=== PATIENT | male | born 1970 | race Caucasian/White ===

== ENCOUNTER → 2016-11-22 | Outpatient (CLI) | payer MEDICAID ==
[~2016-11-22] MED LIST: NAPROSYN 500MG500 MG PO; ROBAXIN 500 MG500 MG PO
--- NOTE | 2016-11-24 08:20 | RADIOLOGY REPORT PS360 ---
MRI-UP EXT ANY JNT W/O-RT MRI RIGHT SHOULDER ORDERING PHYSICIAN : RENNY HUBBARD MD PATIENT AGE: 46 years GENDER: Male INDICATION: ROTATOR CUFF SYNDROME Pain with raising arm above head. No trauma. Symptoms 8 months. Weakness and arm. TECHNIQUE: Multiplanar multisequence imaging 1.5 the MR COMPARISON plain films of right shoulder FINDINGS Patient was a large and unable to shoulder coil. Because of this decreases resolution on today's. This reflects high-grade tendinopathy although could reflect a small cuff tear just at the supraspinatus insertionq Images There is increased signal at the insertion of the supraspinatus tendon . This may just less than 1 cm length along the undersurface of the supraspinatus tendon This reflects tendinopathy and possible partial tear at supraspinatus insertion Region .. Infraspinatus tendon appears intact.. Subscapularis tendon appears intact. But with slight increased signal which could reflect minor tendinopathy. Particularly on the sagittal image set. No prominent or significant free fluid at subdeltoid subacromial bursa to further support a full-thickness rotator cuff tear. On coronal images the acromion is fairly neutral with only subtle downward sloping. The subacromial space measures 6.5- 7 mm.. The supraspinatus appears satisfactory to this region. There is since 11/08/2016 moderate AC joint hypertrophy and arthropathy which is more evident on MR than plain film. Inferior AC joint spurring here slightly encroaches upon the supraspinatus at medial outlet Osseous glenoid is intact. The anterior glenoid labrum appears intact as does the posterior labrum. The patient was unable to externally rotate shoulder with today's MR study, and thus with this is more difficult to optimally visualize the biceps tendon is difficult to visualize biceps tendon. In fact it biceps tendon suggests slight increased signal and less well-defined superior bicipital groove. Difficult to image but suspect for biceps tendinopathy requires correlation IMPRESSION 1. Large patient. & Could not use dedicated shoulder coil. Thus less than optimal image resolution 2. No full-thickness or large rotator cuff tear. 3. Increased signal supraspinatus tendon insertion reflecting tendinopathy, & question minor partial supraspinatus tear at this tendon insertion.. No tendon retraction or defect. No definitive full-thickness tear. -With No significant fluid subdeltoid acromial bursa. 4. Question suspect minor subscapularis tendinopathy as well 5.. biceps tendon difficult to visualize in this patient. Biceps tendon seems to have increased signal just superior to the bicipital groove possibly reflecting biceps tendinopathy. However no fluid is seen along the biceps tendon sheath.
== END ==
LOC: RAD 15:00
DX: M75.101 Unspecified rotator cuff tear or rupture of right shoulder, not specified as traumatic (principal)

== ENCOUNTER → 2017-01-14 | Outpatient (CLI) | payer MEDICAID ==
[2017-01-14 14:37] LABS: AMPHETAMINES/METAMPHETAMINES NEGATIVE ng/mL (<1000)
== END ==
LOC: LAB 14:06
PROVIDERS: Emergency Medicine
DX: Z79.899 Other long term (current) drug therapy (principal)